=== PATIENT | female | born 1940 | race Caucasian/White ===

== ENCOUNTER 2024-07-19 18:26 | Inpatient (IN) | payer MEDICARE, OTHER ==
[~2024-07-19] VITALS: Ht 165.1 cm; Wt 84.9 kg
[2024-07-19 19:34] VITALS: O2SAT 95
[2024-07-19 19:41] LABS: BASOPHILS % (AUTO) 0.7 % (0.0-2.0); EOSINOPHILS # (AUTO) 0.2 K/uL (0.0-0.7); EOSINOPHILS % (AUTO) 3.3 % (0.0-6.0); HEMATOCRIT 39 % (33-45); HEMOGLOBIN 12.7 g/dL (11.5-14.8); LYMPHOCYTES # (AUTO) 1.2 K/uL (0.8-4.8); LYMPHOCYTES % (AUTO) 18.8 % (20.0-44.0); MEAN CORPUSCULAR HEMOGLOBIN 28 PG (26.0-33.0); MEAN CORPUSCULAR HGB CONC 33 g/dl (31.0-36.0); MEAN CORPUSCULAR VOLUME 87 fL (82-100); MONOCYTES # (AUTO) 0.7 K/uL (0.1-1.30); MONOCYTES % (AUTO) 10.4 % (2.0-12.0); NEUTROPHILS # (AUTO) 4.3 K/uL (1.8-8.9); NEUTROPHILS % (AUTO) 66.8 % (43.0-81.0); PLATELET COUNT (AUTO) 261 K/uL (150-450); RED CELL DISTRIBUTION WIDTH 14.6 % (11.5-15.0); WHITE BLOOD COUNT (AUTO) 6.4 K/uL (4.3-11.0)
[2024-07-19 19:50] LABS: SERUM AMMONIA 4 umol/L (11-32)
[2024-07-19 19:55] LABS: APPEARANCE,URINE CLEAR (CLEAR); BILIRUBIN,URINE NEGATIVE (NEGATIVE); BLOOD, URINE TRACE-INTA Ery/uL (NEGATIVE); COLOR,URINE YELLOW (YELLOW); KETONES,URINE NEGATIVE (NEGATIVE); LEUKOCYTE ESTERASE ,URINE 3+ (NEGATIVE); NITRITE, URINE NEGATIVE (NEGATIVE); PROTEIN,URINE NEGATIVE (NEGATIVE); UGLUCOSE NEGATIVE (NEGATIVE); UROBILINOGEN,URINE 0.2 EU/dL (0.2)
[2024-07-19 19:55] LABS: ALANINE AMINOTRANSFERASE 15 U/L (12-78); ALBUMIN 4.1 g/dL (3.4-5.0); ALCOHOL, BLOOD < 3 mg/dL (0-10); ALKALINE PHOSPHATASE 93 U/L (46-116); ASPARTATE AMINOTRANSFERASE 14 U/L (15-37); BILIRUBIN,DIRECT 0.1 mg/dL (0.0-0.2); BILIRUBIN,TOTAL 0.3 mg/dL (0.2-1.0); CALCIUM, SERUM 9.3 mg/dL (8.5-10.1); CARBON DIOXIDE 32 mmol/L (21-32); CHLORIDE 100 mmol/L (98-107); CREATININE 0.9 mg/dL (0.6-1.3); GLUCOSE 103 mg/dL (74-106); POTASSIUM 4.1 mmol/L (3.5-5.1); SODIUM SERUM 137 mmol/L (136-145); TOTAL PROTEIN, SERUM 8.3 g/dL (6.4-8.2); UREA NITROGEN, BLOOD 16 mg/dL (7-18)
[2024-07-19 20:03] LABS: ADD URINE CULTURE YES; BACTERIA,URINE 1+ /HPF (None Seen)
[2024-07-19] MEDS ORDERED: CEFTRIAXONE 1GM BAG (ER ONLY) 50 ML IV ONE (20:22)
[2024-07-19] MEDS: CEFTRIAXONE 1GM BAG (ER ONLY) 1 GM/50 ML PIGGYBACK IV ONE (20:26)
[2024-07-19 21:15] VITALS: BP 135/75; TEMP 97.3; O2SAT 95
[2024-07-19] MEDS ORDERED: MAG HYDROX/AL HYDROX/SIMETH 30 ML UDC PO PRN (21:30)
[2024-07-19] MEDS ORDERED: Z GUARD REMEDY 4 OZ OINT TP PRN (21:30)
[2024-07-19] MEDS ORDERED: ONDANSETRON HCL/PF 4 MG/2 ML VIAL IVP PRN (21:30)
[2024-07-19] MEDS ORDERED: MAGNESIUM HYDROXIDE 30 ML UDC PO PRN (21:30)
[2024-07-19] MEDS: ACETAMINOPHEN 325 MG TABLET PO PRN (22:04)
[2024-07-19] MEDS: IV NS 0.9% 1,000 ML IV PRN (23:01)
[2024-07-20 07:05] LABS: CALCIUM, SERUM 8.8 mg/dL (8.5-10.1); CREATININE 0.7 mg/dL (0.6-1.3); PHOSPHORUS 4.6 mg/dL (2.5-4.9)
[2024-07-20] MEDS: PANTOPRAZOLE 40 MG TABLET.DR PO SCH (07:38)
[2024-07-20 08:00] VITALS: BP 172/84; TEMP 97.7; O2SAT 98
[2024-07-20 08:00] LABS: BASOPHILS % (AUTO) 0.7 % (0.0-2.0); EOSINOPHILS # (AUTO) 0.2 K/uL (0.0-0.7); EOSINOPHILS % (AUTO) 3.9 % (0.0-6.0); HEMATOCRIT 37 % (33-45); LYMPHOCYTES # (AUTO) 1.3 K/uL (0.8-4.8); LYMPHOCYTES % (AUTO) 21.8 % (20.0-44.0); MEAN CORPUSCULAR HEMOGLOBIN 28 PG (26.0-33.0); MEAN CORPUSCULAR HGB CONC 33 g/dl (31.0-36.0); MEAN CORPUSCULAR VOLUME 87 fL (82-100); MONOCYTES # (AUTO) 0.7 K/uL (0.1-1.30); MONOCYTES % (AUTO) 11.9 % (2.0-12.0); NEUTROPHILS # (AUTO) 3.7 K/uL (1.8-8.9); NEUTROPHILS % (AUTO) 61.7 % (43.0-81.0); PLATELET COUNT (AUTO) 253 K/uL (150-450); RED BLOOD CELL COUNT(AUTO) 4.24 MIL/uL (4.0-5.2); RED CELL DISTRIBUTION WIDTH 14.6 % (11.5-15.0); WHITE BLOOD COUNT (AUTO) 5.9 K/uL (4.3-11.0)
[2024-07-20] MEDS ORDERED: DICL100G26 TP ×2 (09:24)
[2024-07-20] MEDS ORDERED: PROP15DR EACHEYE (09:24)
[2024-07-20] MEDS ORDERED: MONT10TA22 PO (09:24)
[2024-07-20] MEDS ORDERED: TRAM50TA2 PO (09:24)
[2024-07-20] MEDS ORDERED: CLOB15CR4 TP (09:24)
[2024-07-20] MEDS ORDERED: LIDO1ADH82 TP (09:24)
[2024-07-20] MEDS ORDERED: PILO5TAB10 PO (09:24)
[2024-07-20] MEDS ORDERED: ACET-2030 PO (09:24)
[2024-07-20] MEDS ORDERED: ALBU0.633 IH (09:24)
[2024-07-20] MEDS ORDERED: PHENERGAN W CODEINE PO (09:24)
[2024-07-20] MEDS ORDERED: ONDA4TAB5 PO (09:24)
[2024-07-20] MEDS ORDERED: MEMA10TA PO (09:24)
[2024-07-20] MEDS ORDERED: PARO-144 PO (09:24)
[2024-07-20] MEDS ORDERED: ESOM40CA52 PO (09:24)
[2024-07-20] MEDS ORDERED: CRAN400C PO (09:24)
[2024-07-20] MEDS ORDERED: CETI-194 PO (09:24)
[2024-07-20] MEDS ORDERED: METH10TA2 PO (09:24)
[2024-07-20] MEDS ORDERED: BACL10TA PO (09:24)
[2024-07-20] MEDS ORDERED: LEVO100T PO (09:24)
[2024-07-20] MEDS: METOCLOPRAMIDE HCL 10 MG/2 ML VIAL IV ONE ×2 (11:00→15:38)
[2024-07-20] MEDS: diphenhydrAMINE HCL 50 MG/ML VIAL IV ONE ×2 (11:00→15:38)
[2024-07-20] MEDS: METHADONE HCL 10 MG TABLET PO SCH (12:07)
[2024-07-20 16:00] VITALS: BP 153/97; TEMP 97.5; O2SAT 97
[2024-07-20] MEDS: PILOCARPINE HCL 5 MG TABLET PO SCH (17:00)
[2024-07-20] MEDS: MONTELUKAST SODIUM (10MG) 10 MG TABLET PO SCH (18:16)
[2024-07-20] MEDS: CEFTRIAXONE 1 G in IV D5W 50 ML IV SCH (20:07)
[2024-07-20 20:11] VITALS: BP 182/96; TEMP 98.4; O2SAT 93
[2024-07-20 20:45] VITALS: BP 145/92
[2024-07-20] MEDS: LIDOCAINE 5% (PATCH) 1 EA PATCH TP PRN (20:54)
[2024-07-21 07:00] VITALS: BP 171/85; TEMP 97.9; O2SAT 95
[2024-07-21 07:14] LABS: CALCIUM, SERUM 8.7 mg/dL (8.5-10.1); CREATININE 0.8 mg/dL (0.6-1.3); MAGNESIUM 1.9 mg/dL (1.8-2.4); PHOSPHORUS 4.3 mg/dL (2.5-4.9)
[2024-07-21 07:39] LABS: BASOPHILS % (AUTO) 0.8 % (0.0-2.0); EOSINOPHILS # (AUTO) 0.3 K/uL (0.0-0.7); HEMATOCRIT 40 % (33-45); HEMOGLOBIN 12.6 g/dL (11.5-14.8); LYMPHOCYTES # (AUTO) 1.3 K/uL (0.8-4.8); LYMPHOCYTES % (AUTO) 22.7 % (20.0-44.0); MEAN CORPUSCULAR HEMOGLOBIN 28 PG (26.0-33.0); MEAN CORPUSCULAR HGB CONC 32 g/dl (31.0-36.0); MEAN CORPUSCULAR VOLUME 87 fL (82-100); MONOCYTES # (AUTO) 0.6 K/uL (0.1-1.30); MONOCYTES % (AUTO) 10.7 % (2.0-12.0); NEUTROPHILS # (AUTO) 3.5 K/uL (1.8-8.9); NEUTROPHILS % (AUTO) 60.8 % (43.0-81.0); PLATELET COUNT (AUTO) 264 K/uL (150-450); RED BLOOD CELL COUNT(AUTO) 4.56 MIL/uL (4.0-5.2); RED CELL DISTRIBUTION WIDTH 14.8 % (11.5-15.0); WHITE BLOOD COUNT (AUTO) 5.7 K/uL (4.3-11.0)
[2024-07-21] MEDS: LEVOTHYROXINE SODIUM 100 MCG TABLET PO SCH (08:22)
[2024-07-21] MEDS: MEMANTINE HCL 5 MG TABLET PO SCH (09:51)
[2024-07-21] MEDS: PAROXETINE HCL 20 MG TABLET PO SCH (09:52)
[2024-07-21] MEDS: AMLODIPINE BESYLATE 5 MG TABLET PO SCH (09:58)
[2024-07-21 16:00] VITALS: BP 176/96; TEMP 97.9; O2SAT 94
[2024-07-21 20:00] VITALS: BP 171/81; TEMP 97.9; O2SAT 93
[2024-07-21] MEDS ORDERED: DICLOFENAC TOPICAL 100 GM TUBE TP PRN ×2 (23:30)
[2024-07-22 08:00] VITALS: BP 161/77; TEMP 98.2; O2SAT 97
[2024-07-22] MEDS ORDERED: AMOX-430 PO (13:09)
[2024-07-22 16:00] VITALS: BP 128/90; TEMP 98.4; O2SAT 96
== END 2024-07-22 18:31 | DRG 640 ==
LOC: ER 18:33 → MED 20:48
PROVIDERS: ADMIT Nurse Practitioner Family; ATTEND Nurse Practitioner Family
DX: E86.0 Dehydration (principal); G93.41 Metabolic encephalopathy; N39.0 Urinary tract infection, site not specified; F03.93 Unspecified dementia, unspecified severity, with mood disturbance; F03.94 Unspecified dementia, unspecified severity, with anxiety; R62.7 Adult failure to thrive; G43.919 Migraine, unspecified, intractable, without status migrainosus; E03.9 Hypothyroidism, unspecified; K21.9 Gastro-esophageal reflux disease without esophagitis; J43.9 Emphysema, unspecified; F32.9 Major depressive disorder, single episode, unspecified; B96.89 Other specified bacterial agents as the cause of diseases classified elsewhere; I10 Essential (primary) hypertension; M25.512 Pain in left shoulder; Z91.81 History of falling; W19.XXXA Unspecified fall, initial encounter; Y92.9 Unspecified place or not applicable; G89.4 Chronic pain syndrome; M54.32 Sciatica, left side; M54.31 Sciatica, right side; Z79.891 Long term (current) use of opiate analgesic
CPT/HCPCS: 36415; 70450-TC; 71045-TC; 73030-TC; 73060-TC; 80048-TC; 80076-TC; 81001; 82140-TC; 82962-TC; 83735-TC; 83880; 84100-TC; 84439-TC; 84443-TC; 84484-TC; 85025-TC; 87081-TC; 87086-TC; 97110-TC; 97116-TC; 97530-TC; 97535-TC; A4223; G0378; G0480; J0696; J1200; J2765; J7030; J7060